=== PATIENT | female | born 1960 | race Caucasian/White ===

== ENCOUNTER 2017-05-28 13:58 | Emergency (ER) | payer OTHER ==
[~2017-05-28] VITALS: Ht 157.5 cm; Wt 61.5 kg
[~2017-05-28 13:58] MED LIST: ASPI81TA82 PO; CYMB30CA PO; DOXY100T PO; ED B10TA PO; LORTA5 PO; MOTR200T PO; SULF1TAB47 PO; TELM1TAB56 PO
[2017-05-28 14:05] VITALS: BP 116/88; PULSE 93; RESP 22; TEMP 97.8; O2SAT 98
[2017-05-28] MEDS ORDERED: SODIUM CHLOR 0.9% 1000 ML INJ 1,000 ML IV SCH ×2 (14:12→15:45)
[2017-05-28] MEDS ORDERED: ONDANSETRON HCL 4 MG/2 ML VIAL IVP ONE (14:15)
[2017-05-28] MEDS ORDERED: MORPHINE SULFATE 4 MG/ML INJ IV PUSH ONE (14:15)
[2017-05-28] MEDS ORDERED: SODIUM CHLORIDE 0.9% FLUSH 10 ML FLUSH IV FLUSH PRN (14:15)
[2017-05-28] MEDS ORDERED: HYDROmorphone HCL PF 1 MG/ML VIAL IV PUSH ONE (14:30)
[2017-05-28] MEDS ORDERED: diphenhydrAMINE HCL 50 MG/ML VIAL IV PUSH ONE (14:30)
[2017-05-28] MEDS ORDERED: PROCHLORPERAZINE INJ 10 MG/2 ML VIAL IV PUSH ONE (14:30)
[2017-05-28] MEDS ORDERED: CYMB30CA PO (14:33)
[2017-05-28] MEDS ORDERED: LISI2.5T3 PO (14:33)
[2017-05-28] MEDS ORDERED: ASPI81TA11 PO (14:33)
[2017-05-28] MEDS ORDERED: cholesterol med PO (14:33)
[2017-05-28] MEDS ORDERED: HYDR-3516 PO (14:33)
--- NOTE | 2017-05-28 14:38 | PD ---
HPI . Abdominal pain Chief Complaint: Abdominal Pain Time Seen by Provider: 14:12 Travel History International Travel<30 days: No Contact w/Intl Traveler<30days: No Traveled to known affect area: No History of Present Illness HPI This patient presents to us via [facility] with the chief complaint of acute abdominal pain. She states that she vomited at about 10 AM and then immediately had the onset of severe right-sided abdominal pain. She describes a constant, stabbing pain which she rates 10/10. Associated with nausea and vomiting. No modifying factor. No previous similar history. PFSH Past Medical History Anxiety: Yes Depression: Yes Cancer: No Diabetes: No Diminished Hearing: No Hepatitis: No Hiatal Hernia: No Hypertension: Yes Immunizations Current: Yes Thyroid Disease: No Past Surgical History Abdominal Surgery: Yes (EXP LAP LYSIS ADHESIVES) Section: Yes (X 2) Gynecologic Surgery: Yes ( X 2; HYSTERECTOMY) Hysterectomy: Yes Other Surgery: Yes (TUMOR REMOVED RIGHT SHOULDER 04/2007) Family History Family Myocardial Infarction: Yes (GRANDMOTHER) Social History Alcohol Use: Yes ("SOCIAL ONLY" ) Tobacco Use: Yes (1/2 PPD) Substance Use: No Allergies-Medications (Allergen,Severity, Reaction): Coded Allergies: cyclobenzaprine (Unverified Allergy, Severe, Nausea/Vomiting, 05/28/17) Reported Meds & Prescriptions Reported Meds & Active Scripts Active Phenergan (Promethazine HCl) 25 Mg Tablet 25 Mg PO Q6H PRN Flomax (Tamsulosin HCl) 0.4 Mg Cap 0.4 Mg PO HS Percocet (Oxycodone-Acetaminophen) 5-325 mg Tab 1 Tab PO Q4H PRN Reported Cymbalta DR (Duloxetine HCl) 30 Mg Capdr 30 Mg PO HS Hydrocodone-Acetaminophen 5-325 mg Tab 1 Tab PO BID PRN Aspirin EC (Aspirin) 81 Mg Tabdr 81 Mg PO HS [cholesterol med] 1 Tab PO HS Lisinopril 2.5 Mg Tab Unknown Dose PO HS Review of Systems Except as stated in HPI: all other systems reviewed are Neg General / Constitutional: No: Fever, Chills Gastrointestinal: Positive: Nausea, Vomiting, Abdominal Pain, No: Diarrhea Genitourinary: No: Urgency, Frequency, Dysuria Physical Exam Narrative GENERAL: This patient is writhing. SKIN: warm/dry. HEAD: Normocephalic. Atraumatic. EYES: Pupils equal and round. No scleral icterus. No injection or drainage. ENT: No nasal bleeding or discharge. Mucous membranes pink and moist. NECK: Trachea midline. Full range of motion without pain.. CARDIOVASCULAR: Regular rate and rhythm. Heart sounds normal. RESPIRATORY: No accessory muscle use. Clear to auscultation. Breath sounds equal bilaterally. GASTROINTESTINAL: Abdomen soft. Tender especially in the right upper quadrant. Bowel sounds present. Nondistended. No CVA tenderness. MUSCULOSKELETAL: No obvious deformities. NEUROLOGICAL: Awake and alert. No obvious cranial nerve deficits. Motor grossly within normal limits. Normal speech. PSYCHIATRIC: Appropriate mood and affect; insight and judgment normal. Data Data Last Documented VS Vital Signs Date Time Temp Pulse Resp B/P (MAP) Pulse Ox O2 Delivery O2 Flow Rate FiO2 05/28/17 16:42 84 16 163/87 (112) 100 Room Air 05/28/17 14:44 98.4 Orders Orders Basic Metabolic Panel (Bmp) (05/28/17 14:12) Complete Blood Count With Diff (05/28/17 14:12) Urinalysis - C+S If Indicated (05/28/17 14:12) Ct Abd/Pel W/O Iv Contrast (05/28/17 14:12) Iv Access Insert/Monitor (05/28/17 14:12) Morphine Inj (Morphine Inj) (05/28/17 14:15) Ondansetron Inj (Zofran Inj) (05/28/17 14:15) Sodium Chlor 0.9% 1000 Ml Inj (Ns 1000 M (05/28/17 14:12) Sodium Chloride 0.9% Flush (Ns Flush) (05/28/17 14:15) Prochlorperazine Inj (Compazine Inj) (05/28/17 14:30) Diphenhydramine Inj (Benadryl Inj) (05/28/17 14:30) Hydromorphone Pf Inj (Dilaudid Pf Inj) (05/28/17 14:30) Lactic Acid (05/28/17 14:43) Sodium Chlor 0.9% 1000 Ml Inj (Ns 1000 M (05/28/17 15:45) Labs Laboratory Tests Test 05/28/17 14:35 05/28/17 16:25 White Blood Count 14.7 TH/MM3 Red Blood Count 4.63 MIL/MM3 Hemoglobin 13.9 GM/DL Hematocrit 40.7 % Mean Corpuscular Volume 87.9 FL Mean Corpuscular Hemoglobin 29.9 PG Mean Corpuscular Hemoglobin Concent 34.0 % Red Cell Distribution Width 12.0 % Platelet Count 328 TH/MM3 Mean Platelet Volume 8.5 FL Neutrophils (%) (Auto) 80.9 % Lymphocytes (%) (Auto) 10.5 % Monocytes (%) (Auto) 5.5 % Eosinophils (%) (Auto) 0.1 % Basophils (%) (Auto) 3.0 % Neutrophils # (Auto) 12.0 TH/MM3 Lymphocytes # (Auto) 1.5 TH/MM3 Monocytes # (Auto) 0.8 TH/MM3 Eosinophils # (Auto) 0.0 TH/MM3 Basophils # (Auto) 0.4 TH/MM3 CBC Comment DIFF FINAL Differential Comment Blood Urea Nitrogen 18 MG/DL Creatinine 0.76 MG/DL Random Glucose 123 MG/DL Calcium Level 9.0 MG/DL Sodium Level 139 MEQ/L Potassium Level 3.4 MEQ/L Chloride Level 106 MEQ/L Carbon Dioxide Level 23.8 MEQ/L Anion Gap 9 MEQ/L Estimat Glomerular Filtration Rate 78 ML/MIN Lactic Acid Level 1.5 mmol/L Urine Color YELLOW Urine Turbidity CLEAR Urine pH 6.5 Urine Specific [place] 1.020 Urine Protein NEG mg/dL Urine Glucose (UA) NEG mg/dL Urine Ketones 40 mg/dL Urine Occult Blood LARGE Urine Nitrite NEG Urine Bilirubin NEG Urine Leukocyte Esterase NEG Urine RBC 25-49 /hpf Urine WBC 3-5 /hpf Urine Squamous Epithelial Cells 0-5 /hpf Microscopic Urinalysis Comment CULT NOT INDICATED MDM Medical Decision Making Medical Screen Exam Complete: Yes Emergency Medical Condition: Yes Medical Record Reviewed: Yes (her major medical issues include hypertension and tobacco abuse.) Differential Diagnosis Differential diagnosis of abdominal pain includes but is not limited to gastritis, pancreatitis, hepatitis, gastroenteritis, gallbladder disease, constipation, urinary retention, UTI, peptic ulcer disease, diverticulitis or appendicitis Narrative Course This patient presents with the acute onset of right-sided abdominal pain. Her pain is colicky. She is writhing on the bed. She does not have an acute abdomen. She is acting more like renal or biliary colic. CBC & BMP Diagram 05/28/17 14:35 Calcium Level 9.0 Last Impressions Abdomen/Pelvis CT 05/28/17 1412 Signed Impressions: Service Date/Time: Sunday, May 28, 2017 14:59 - CONCLUSION: 1. 9 mm distal right ureteral stone with hydronephrosis and hydroureter. The stone is at the level of the crossing of the iliac vessels. 2. Bilateral renal calculi. Mark Daugherty Jr., MD UA is negative for infection. This patient is now stable for discharge to home. She has had adequate pain control here. Diagnosis Primary Impression: Abdominal pain Qualified Codes: R10.31 - Right lower quadrant pain Additional Impressions: Vomiting Qualified Codes: R11.2 - Nausea with vomiting, unspecified Nephrolithiasis Referrals: Niranjan Mireles MD Patient Instructions: General Instructions, Kidney Stones (DC), Narcotic given in the ED Med/Other Pt SpecificInfo: Prescription(s) given Scripts Promethazine (Phenergan) 25 Mg Tablet 25 MG PO Q6H Y for NAUSEA OR VOMITING, #12 TAB 0 Refills Prov: Irais Pedroza MD 05/28/17 Tamsulosin (Flomax) 0.4 Mg Cap 0.4 MG PO HS for kidney stone passage, #30 CAP 0 Refills Prov: Irais Pedroza MD 05/28/17 Oxycodone-Acetaminophen (Percocet) 5-325 mg Tab 1 TAB PO Q4H Y for PAIN, #12 TAB 0 Refills Prov: Irais Pedroza MD 05/28/17 Disposition: 01 DISCHARGE HOME Condition: Stable Irais Pedroza MD May 28, 2017 14:38
[2017-05-28 14:44] VITALS: BP 156/89; PULSE 83; RESP 18; TEMP 98.4; O2SAT 97
[2017-05-28 15:04] LABS: BICARBONATE 23.8 MEQ/L (21.0-32.0)
[2017-05-28 15:07] LABS: CREATININE 0.76 MG/DL (0.50-1.00)
[2017-05-28 15:19] LABS: BASOPHIL # 0.4 TH/MM3 (0-0.2); EOSINOPHIL % 0.1 % (0.0-4.0); HEMATOCRIT 40.7 % (35.0-46.0); HEMOGLOBIN 13.9 GM/DL (11.6-15.3); LYMPH % 10.5 % (9.0-44.0); LYMPHOCYTE # 1.5 TH/MM3 (1.0-4.8); MEAN CELL VOLUME 87.9 FL (80.0-100.0); MEAN CORPUSCULAR HEMOGLOBIN 29.9 PG (27.0-34.0); MEAN PLATELET VOLUME 8.5 FL (7.0-11.0); MONO % 5.5 % (0.0-8.0); MONOCYTE # 0.8 TH/MM3 (0-0.9); NEUT % 80.9 % (16.0-70.0); PLATELET COUNT 328 TH/MM3 (150-450); RED BLOOD COUNT 4.63 MIL/MM3 (4.00-5.30); WHITE BLOOD COUNT 14.7 TH/MM3 (4.0-11.0)
--- NOTE | 2017-05-28 15:30 | RADRPT ---
EXAM DATE/TIME: 05/28/2017 14:59 [facility] COMPARISON: No previous studies available for comparison. INDICATIONS : Right lower abdominal pain. New onset. ORAL CONTRAST: No oral contrast ingested. RADIATION DOSE: 16.85 CTDIvol (mGy) MEDICAL HISTORY : Hypertension. SURGICAL HISTORY : Hysterectomy. section. ENCOUNTER: Initial ACUITY: 1 day PAIN SCALE: 5/10 LOCATION: Right lower quadrant TECHNIQUE: Volumetric scanning of the abdomen and pelvis was performed. Using automated exposure control and ad justment of the mA and/or kV according to patient size, radiation dose was kept as low as reasonably achievable to obtain optimal diagnostic quality images. DICOM format image data is available electro nically for review and comparison. FINDINGS: LOWER LUNGS: The visualized lower lungs are clear. LIVER: Homogeneous density without lesion. There is no dilation of the biliary tree. No calcified gallston es. SPLEEN: Normal size without lesion. Granulomatous calcifications. PANCREAS: Within normal limits. KIDNEYS: There is hydronephrosis and hydroureter on the right. This is secondary to a 9 mm stone located withi n the distal ureter at the level of the crossing of the iliac vessels. There is enlargement of the ri ght kidney with perinephric stranding. No hydronephrosis on the left. Bilateral renal calculi. The la rgest on the left measures 7 mm. ADRENAL GLANDS: Within normal limits. VASCULAR: There is no aortic aneurysm. BOWEL/MESENTERY: The stomach, small bowel, and colon demonstrate no acute abnormality. There is no free intraperitone al air or fluid. ABDOMINAL WALL: Within normal limits. RETROPERITONEUM: There is no lymphadenopathy. BLADDER: No wall thickening or mass. REPRODUCTIVE: Within normal limits. INGUINAL: There is no lymphadenopathy or hernia. MUSCULOSKELETAL: Within normal limits for patient age. CONCLUSION: 1. 9 mm distal right ureteral stone with hydronephrosis and hydroureter. The stone is at the level of the crossing of the iliac vessels. 2. Bilateral renal calculi. Mark Daugherty Jr., MD on May 28, 2017 at 15:25 Board Certified Radiologist. This report was verified electronically.
[2017-05-28 15:40] VITALS: BP 172/79; PULSE 74; RESP 18; O2SAT 98
[2017-05-28] MEDS ORDERED: PROM25TA10 PO (15:58)
[2017-05-28] MEDS ORDERED: PERC5TAB12 PO (15:58)
[2017-05-28] MEDS ORDERED: TAMS5CAP PO (15:58)
[2017-05-28 16:27] VITALS: BP 176/101; PULSE 79; RESP 16; O2SAT 96
[2017-05-28 16:35] LABS: BILIRUBIN, URINE NEG (NEG); BLOOD, URINE LARGE (NEG); GLUCOSE,URINE NEG (NEG); KETONE, URINE 40 mg/dL (NEG); NITRITE,URINE NEG (NEG); PH, URINE 6.5 (5.0-8.5); URINE LEUKOCYTE ESTERASE NEG (NEG)
[2017-05-28 16:42] VITALS: BP 163/87; PULSE 84; RESP 16; O2SAT 100
[2017-05-28 17:02] LABS: URINE COLOR YELLOW (YELLW/STRAW)
[2017-05-28 17:03] LABS: SQUAMOUS EPITHELIAL CELL URINE 0-5 /hpf (0-5)
== END 2017-05-28 17:43 | disposition home or self-care (01) ==
LOC: PHED 13:58
DX: R10.31 Right lower quadrant pain (principal); R11.2 Nausea with vomiting, unspecified; N20.0 Calculus of kidney; I10 Essential (primary) hypertension; F17.200 Nicotine dependence, unspecified, uncomplicated; Z86.59 Personal history of other mental and behavioral disorders
CPT/HCPCS: 74176; 80048; 81001; 83605; 85025; 96361; 96374; 96375; 99285; J0780; J1170; J1200; J2270; J2405; J7030

== ENCOUNTER 2018-09-18 21:31 | Inpatient (IN) ==
[2018-09-18] MEDS ORDERED: Morphine Inj 4 MG/ML Vial IV.PUSH ONE ×2 (21:56→22:58)
[2018-09-18] MEDS ORDERED: Ketorolac Inj 30 MG/ML (IVP) Vial IV.PUSH ONE (21:56)
[2018-09-18] MEDS ORDERED: Sod Chloride 0.9% Inj 1,000 ML IV.CONT SCH (22:00)
--- NOTE | 2018-09-18 22:07 | ED ---
HPI General Chief Complaint: Abdominal Pain Stated Complaint: side pain after surgery Time Seen by Provider: 09/18/18 21:46 Source: patient Mode of arrival: ambulatory Limitations: no limitations History of Present Illness HPI narrative: The patient is a 58-year-old female who presents to the emergency department via private vehicle for left flank pain. The patient states that she was recently in the hospital for left flank pain and subsequently had a stent placed. The patient was on antibiotics for 2 days and then subsequently taken off of the antibiotics. The patient was discharged home today and then went down to [facility] where she had her stent removed and lithotripsy performed by Dr. Spear. The patient states her urologist is Dr. Flores. The patient went home from the procedure at 5 PM and several hours later developed left flank pain. The pain is located left flank, migrates to the left mid back, and is associated with nausea and vomiting. The patient denies any dysuria, frequency, urgency, or hematuria. Symptoms are moderate to severe and progressive. The patient's primary physician is Dr. Stevenson. The patient denies any history of diverticulitis, has had 2 previous sections as well as surgery on the left hip for possible cancer which was benign. MD complaint: Reports flank pain Onset (ago): hour(s) Pain Consistency: constant Location: Reports L flank Severity: severe Severity scale (1-10): 10 Quality: Reports stabbing and sharp Radiation: Reports none Migration to: Reports other Relieving factors: nothing Exacerbating factors: nothing Context: Reports other Associated symptoms: Reports nausea and vomiting Related Data Patient : No Home Medications Medication Instructions Recorded Confirmed duloxetine 90 mg PO DAILY 09/11/18 09/18/18 hydrocodone-acetaminophen 1 tab TID 09/11/18 09/18/18 losartan 50 mg PO DAILY 09/11/18 09/18/18 Previous Rx's Medication Instructions Recorded phenazopyridine 100 mg PO Q8H PRN 10 Days #30 tab 09/13/18 tamsulosin 0.4 mg PO DAILY 14 Days #14 cap 09/13/18 oxycodone-acetaminophen 1 tab PO Q4-6H PRN #18 tab 09/18/18 Allergies Allergy/AdvReac Type Severity Reaction Status Date / Time cyclobenzaprine Allergy Severe Nausea/Vomi Verified 09/18/18 21:39 ting Review of Systems ROS: all other systems reviewed are negative [facility] Medical History Medical History Chronic back pain (Acute) HTN (hypertension) (Acute) History of hysterectomy (Acute) Kidney stone (Acute) Mass of soft tissue of left lower extremity (Acute) Surgical History Surgical History H/O: (Acute) Hx of lumpectomy (Acute) Social History Social History Substance History: No History of Abuse Second Hand Smoke Exposure: No Smoking Status: Current some day smoker Tobacco Type: Cigarettes How Often Do You Have a Drink Containing Alcohol: 2 to 4 times a month Recent Travel in [facility] within the Last 8 Weeks: No Immunization History Tetanus Immunization: Unsure Exam Narrative Exam Narrative: GENERAL: Awake, alert, pleasant 58-year-old female who appears her stated age and is in no acute respiratory distress. Patient does appear in moderate discomfort. SKIN: Focused skin assessment warm/dry. HEAD: Atraumatic. Normocephalic. EYES: No scleral icterus. ENT: No nasal bleeding or discharge. Mucous membranes pink and moist. NECK: Trachea midline. No JVD. CARDIOVASCULAR: Regular rate and rhythm. No murmur appreciated. RESPIRATORY: No accessory muscle use. Clear to auscultation. Breath sounds equal bilaterally. GASTROINTESTINAL: Abdomen soft, non-tender, nondistended. Well-healed midline lower abdominal scar. Back: No left CVA tenderness. A few scattered maculopapular areas on the left low back which patient states has been chronic. MUSCULOSKELETAL: No obvious deformities. No clubbing. No cyanosis. No edema. NEUROLOGICAL: Awake and alert. No obvious cranial nerve deficits. Motor grossly within normal limits. Normal speech. PSYCHIATRIC: Appropriate mood and affect; insight and judgment normal. Course Initial Documented Vital Signs Temperature 97.6 F 09/18/18 21:39 Pulse Rate 95 H 09/18/18 21:39 Respiratory Rate 20 09/18/18 21:39 Blood Pressure 143/82 H 09/18/18 21:39 Pulse Oximetry 97 09/18/18 21:39 Last Documented Vital Signs Temperature 97.6 F 09/18/18 21:39 Pulse Rate 95 H 09/18/18 21:39 Respiratory Rate 20 09/18/18 21:39 Blood Pressure 143/82 H 09/18/18 21:39 Pulse Oximetry 97 09/18/18 21:39 Medical Decision Making MDM Narrative Medical decision making narrative: IV was established, labs are drawn and sent, and the patient was placed on cardiac telemetry monitoring and continuous pulse oximetry monitoring. The patient was administered Toradol, morphine, Zofran, and IV fluids. Noncontrast CT of the abdomen and pelvis was obtained to evaluate for hydronephrosis and possible obstruction with current ureterolithiasis. The patient's white count and hemoglobin are within normal limits. CT of the abdomen and pelvis reveals a left-sided perinephric hematoma , I discussed the patient with Dr. Flores at 10:53 PM who recommends pain control and IV hydration. Type and screen was sent to lab. I discussed the patient with the on-call [facility] physician, Dr. Montgomery, who agrees with admission to Dr. Koroma. The patient was reassessed at 10:57 PM, she continued to have significant left flank pain despite Toradol and morphine. Therefore, the patient was administered a second dose of morphine 4 mg intravenously. Medical Screen Exam Complete: Yes Emergency Medical Condition: Yes Differential Diagnosis Differential Diagnosis: Differential diagnosis includes postoperative complication, nephrolithiasis, hydronephrosis, pyelonephritis, diverticulitis, lower lobe pneumonia. Lab Data Result diagrams: 09/18/18 22:10 09/18/18 22:10 Lab Results 09/18/18 09/18/18 Range/Units 22:10 22:10 WBC 8.2 (4.0-11.0) th/mm3 RBC 4.10 (4.00-5.30) mil/mm3 Hgb 12.5 (11.6-15.3) gm/dL Hct 35.7 (35.0-46.0) % MCV 87.0 (80.0-100.0) fL MCH 30.5 (27.0-34.0) pg MCHC 35.1 (32.0-36.0) % RDW 12.4 (11.6-17.2) % Plt Count 327 (150-450) th/mm3 MPV 8.1 (7.0-11.0) fL Neut % (Auto) 91.1 H (16.0-70.0) % Lymph % (Auto) 7.9 L (9.0-44.0) % Noble % (Auto) 0.8 (0.0-8.0) % Eos % (Auto) 0.0 (0.0-4.0) % Baso % (Auto) 0.2 (0.0-2.0) % Neut # (Auto) 7.5 (1.8-7.7) th/mm3 Lymph # (Auto) 0.6 L (1.0-4.8) th/mm3 Noble # (Auto) 0.1 (0.0-0.9) th/mm3 Eos # (Auto) 0.0 (0.0-0.4) th/mm3 Baso # (Auto) 0.0 (0.0-0.2) th/mm3 WBC Differential . Differential Comment Auto diff final Lactic Acid 1.6 (0.4-2.0) mmol/L Imaging Data Radiologist's impression: Abdomen/Pelvis CT 09/18/18 21:56 CONCLUSION: 1. Interval development of a subcapsular and perinephric retroperitoneal hemorrhage on the left. 2. Interval removal of the left double-J stent without hydronephrosis. Multiple stone fragments are seen involving the left kidney. 3. Colonic diverticulosis. Discharge Plan Discharge Disposition Patient Disposition: ED Admit(ED Internal Use Only) Discharge Condition Condition: Stable Discharge Details Diagnosis: Perinephric hematoma, Left flank pain Physicians Team ED Provider: Ihsan Mccabe Primary Care Provider: UNKNOWN, Rxs /Orders / Referrals /Forms Prescriptions: No Action losartan 50 mg Tablet 50 mg PO DAILY RF: 0 duloxetine 30 mg Capsule,Delayed Release(Dr/Ec) 90 mg PO DAILY RF: 0 hydrocodone-acetaminophen 7.5-325 mg Tablet 1 tab TID RF: 0 tamsulosin 0.4 mg Capsule 0.4 mg PO DAILY 14 Days Qty: 14 RF: 0 phenazopyridine 100 mg Tablet 100 mg PO Q8H PRN (Reason: Dysuria) 10 Days Qty: 30 RF: 0 oxycodone-acetaminophen 5-325 mg Tablet 1 tab PO Q4-6H PRN (Reason: Pain) Qty: 18 RF: 0 Status ED Status: Pending Admission
[2018-09-18 22:43] LABS: Baso % (Auto) 0.2 % (0.0-2.0); Hematocrit 35.7 % (35.0-46.0); Hemoglobin 12.5 gm/dL (11.6-15.3); Lymph # (Auto) 0.6 th/mm3 (1.0-4.8); Lymph % (Auto) 7.9 % (9.0-44.0); Mean Corpuscular HGB Conc 35.1 % (32.0-36.0); Mean Corpuscular Hemoglobin 30.5 pg (27.0-34.0); Mean Platelet Volume 8.1 fL (7.0-11.0); Mono # (Auto) 0.1 th/mm3 (0.0-0.9); Mono % (Auto) 0.8 % (0.0-8.0); Neut # (Auto) 7.5 th/mm3 (1.8-7.7); Neut % (Auto) 91.1 % (16.0-70.0); Platelet Count 327 th/mm3 (150-450); Red Cell Distribution Width 12.4 % (11.6-17.2); White Blood Count 8.2 th/mm3 (4.0-11.0)
--- NOTE | 2018-09-18 22:43 | CT ---
EXAM DATE: 09/18/2018 10:38 PM EST AGE/SEX: 58 years / Female INDICATIONS: Left flank pain. Left lithotripsy and stent removal today. CLINICAL DATA: This is the patient's initial encounter. Patient reports that signs and symptoms have been present for 1 day and indicates a pain score of 8/10. MEDICAL/SURGICAL HISTORY: Hypertension. Renal calculi. Hysterectomy. section. RADIATION DOSE: 9.7 CTDI (mGy) COMPARISON: [facility] [place], CT ABDOMEN & PELVIS W/O CONTRAST, 09/16/2018. . TECHNIQUE: Multiple contiguous axial images were obtained through the abdomen. Images were obtained using multiple row detector helical technique. Using automated exposure control and adjustment of the mA and/or kV according to patient size, radiation dose was kept as low as reasonably achievable to o btain optimal diagnostic quality images. DICOM format image data is available electronically for rev iew and comparison. FINDINGS: Lower Lungs: The visualized lower lungs are clear. Liver: The liver has a homogeneous density without space-occupying lesion. There is no dilation of th e biliary tree. Gallbladder is unremarkable. Spleen: Homogeneous density without enlargement. Pancreas: Unremarkable without mass or calcification. Kidneys: An acute subcapsular hematoma is seen involving the left kidney along its posterior surface . It measures 8.5 x 6.6 x 4.3 cm in generates mass effect upon the posterior margin of the left kidne y. It also displaces the left kidney anteriorly. There is small volume hemorrhage within the perineph leonidas fat within the left retroperitoneum tracking down into the superior portion the left hemipelvis. This is a new finding from the prior exam. The right kidneys unremarkable the double-J stent is been removed. Multiple small stone fragments are seen involving the collecting system of left kidney. No h ydronephrosis. A 2 mm stone is seen involving the right kidney... Adrenal Glands: Unremarkable. Aorta: Diffuse calcified atheromatous plaque without aneurysmal dilation. Bowel/Mesentery: A few scattered colonic diverticuli without acute inflammation. The bowel loops are grossly unremarkable. The cecum and sigmoid colon have a normal configuration. Abdominal Wall: Intact. Retroperitoneum: No evidence of adenopathy in the retrocrural, para-aortic, or deep pelvic regions. Bladder: Contours are smooth. Reproductive Organs: No abnormal masses or calcifications seen. Inguinal: The inguinal region is unremarkable without evidence of adenopathy. Bony Structures: Unremarkable. CONCLUSION: 1. Interval development of a subcapsular and perinephric retroperitoneal hemorrhage on the left. 2. Interval removal of the left double-J stent without hydronephrosis. Multiple stone fragments are seen involving the left kidney. 3. Colonic diverticulosis. Electronically signed by: Mark Daugherty MD Board Certified Radiologist 09/18/2018 10:42 PM EST
[2018-09-18] MEDS ORDERED: Bisacodyl 10 MG Supp RECTAL PRN (22:50)
[2018-09-18] MEDS ORDERED: Morphine Inj 4 MG/ML Vial IV.PUSH PRN (22:50)
[2018-09-18] MEDS ORDERED: Naloxone Inj 0.4 MG/ML Vial IV.PUSH PRN (22:50)
[2018-09-18] MEDS ORDERED: Acetaminophen 325 MG Tablet PO PRN ×2 (22:50)
[2018-09-18 23:03] LABS: Alanine Aminotransferase 16 U/L (10-53)
[2018-09-18 23:05] LABS: Alkaline Phosphatase 70 U/L (45-117); Total Protein 6.8 g/dL (6.4-8.2)
[2018-09-18 23:05] LABS: Bilirubin,Urine Negative (Negative); Clarity,Urine Cloudy (Clear); Color,Urine Red (Yellw/Straw); Glucose,Urine (UA) 50 mg/dL (Negative); Leukocyte Esterase,Urine Trace (Negative); Mucus,Urine Many /lpf (Occasional); Nitrite,Urine Negative (Negative); Specific Gravity,Urine 1.023 (1.002-1.035); Squamous Epithelial Cell,Urine 2 /hpf (0-5)
[2018-09-18 23:11] LABS: Albumin 3.8 g/dL (3.4-5.0); Anion Gap 11 meq/L (5-15); Aspartate Aminotransferase 19 U/L (15-37); Blood Urea Nitrogen 14 mg/dL (7-18); Chloride 104 meq/L (98-107); Glomerular Filtration Rate 79 mL/min (>89); Glucose,Random 173 mg/dL (74-106); Lipase 81 U/L (73-393); Magnesium 1.9 mg/dL (1.5-2.5); Potassium 3.9 meq/L (3.5-5.1); Sodium 137 meq/L (136-145)
[2018-09-19] MEDS: Sod Chloride 0.9% Inj 1,000 ML IV.CONT SCH ×3 (00:02→20:21)
[2018-09-19] MEDS: HYDROmorphone PF Inj 1 MG/ML Ampul IV.PUSH PRN ×5 (02:53→21:42)
[2018-09-19 05:09] LABS: Baso % (Auto) 0.3 % (0.0-2.0); Hematocrit 31.3 % (35.0-46.0); Hemoglobin 10.8 gm/dL (11.6-15.3); Lymph # (Auto) 1.1 th/mm3 (1.0-4.8); Lymph % (Auto) 11.6 % (9.0-44.0); Mean Corpuscular HGB Conc 34.5 % (32.0-36.0); Mean Corpuscular Hemoglobin 30.7 pg (27.0-34.0); Mono # (Auto) 0.3 th/mm3 (0.0-0.9); Mono % (Auto) 3.5 % (0.0-8.0); Neut # (Auto) 7.8 th/mm3 (1.8-7.7); Neut % (Auto) 84.6 % (16.0-70.0); Platelet Count 297 th/mm3 (150-450); Red Blood Count 3.52 mil/mm3 (4.00-5.30); Red Cell Distribution Width 12.6 % (11.6-17.2); White Blood Count 9.3 th/mm3 (4.0-11.0)
[2018-09-19 05:21] LABS: Calcium 7.9 mg/dL (8.5-10.1); Carbon Dioxide 24.2 meq/L (21.0-32.0); Potassium 4.1 meq/L (3.5-5.1)
[2018-09-19] MEDS: Senna/Docusate Sodium 8.6/50 MG Tablet PO SCH ×2 (08:21→20:23)
--- NOTE | 2018-09-19 12:35 | MB ---
cc: Robby Flores DO DATE: 09/19/2018 HISTORY OF PRESENT ILLNESS: Ms. Nolasco is a pleasant 58-year-old female with a history of left renal calculi. She underwent cystoscopy with left double-J stent insertion 1 week ago at [facility] and today she presents to the emergency room, status post left extracorporeal shock wave lithotripsy with left-sided flank pain. CT scan in the emergency room demonstrated a perinephric hematoma with some small stone fragments within the left lower pole and a few small fragments within the proximal left ureter. Her stent was removed by Dr. Galloway earlier in the day. She denies any fever or chills, but has nausea and vomiting and her pain is uncontrolled at home with p.o. pain medication. She was advised to come to the emergency room to help control her pain and to be evaluated. PAST MEDICAL HISTORY: Includes chronic back pain, hypertension, kidney stones. PAST SURGICAL HISTORY: Recent left extracorporeal shockwave lithotripsy, history of a , history of a lumpectomy. SOCIAL HISTORY: Notable for smoking and drinking in the past. She denies any drug abuse. REVIEW OF SYSTEMS: Left-sided flank pains noted nausea and vomiting, left-sided abdominal pain. Notes nausea and vomiting also. Denies chest pain or shortness of breath. Denies headache, visual disturbances, gait disturbances. Denies bleeding disorders. Remaining review of systems were reviewed and were negative. PHYSICAL EXAMINATION: VITAL SIGNS: Temperature 97.9, heart rate 85, respiratory rate 20, 120/66 blood pressure, 94% on room air. GENERAL: She is a well-developed, well-nourished 58-year-old female, in no acute distress. HEENT: Normocephalic, atraumatic. Pupils equal, round, reactive to light. Extraocular movements intact. NECK: Supple. HEART: Regular rate and rhythm. LUNGS: Clear. ABDOMEN: Soft. Left-sided tenderness noted. Left CVA tenderness noted on exam. PELVIC: Normal female external genitalia is noted. EXTREMITIES: Show no signs of cyanosis, clubbing or edema. NEUROLOGIC: Cranial nerves 2 through 12 are intact. LABORATORY DATA: White count 9.3, hemoglobin 10.8, hematocrit 31.3, platelet count of 297. Sodium 140, potassium 4.1, chloride 106, CO2 24.2, BUN 12, creatinine 0.71, glucose of 126. Urinalysis shows numerous red cells and 32 white cells. Urine culture is currently pending. Again, CT scan shows small stone fragments in the left lower pole without hydronephrosis, but noted to have a left perinephric hematoma, status post extracorporeal shockwave lithotripsy. ASSESSMENT: A 58-year-old female status post left extracorporeal shockwave lithotripsy with evidence of a perinephric hematoma and some small renal calculi without evidence of obstruction or hydronephrosis at this time. Recommend conservative measures including IV fluids and IV antibiotics. Check urine culture results and pain medication, antiemetics as necessary. Thank you for the consult and allowing me to participate in the care for this patient. DO MOUNA Bhakta/ct , 11:39 AM , 11:48 AM
--- NOTE | 2018-09-19 13:08 | P.HPIM ---
History of Present Illness Primary Care Physician: Dr. Stevenson Chief Complaint: left flank pain History of Present Illness: Ms. Nolasco is a 58 y/o female who was recently admitted to [facility] [place] 09/11/18 - 09/13/18 with left-sided abdominal/flank pain and was found to have 2 obstructing stones in the left kidney with the largest at the UPJ with a smaller 1 mm stone at the UPJ. There was a nonobstructing 1 mm stone in the right kidney. She had a cystoscopy and left retrograde pyelogram with left double-J stent insertion by Dr. Flores on 09/11/18. She still had some pain after the stent placement and because of this Dr. Flores ordered a repeat CT scan of the abdomen on 09/13/18 and it was reported that the stent was in the appropriate place. Pt was started on Flomax 0.4mg daily and Pyridium on the day of discharge. Pt has been using her Lortab 7.5/325mg for pain. Pt had urine culture did not grow out any bacteria so an antibiotic was not ordered at previous discharge. She presented back to the ED at [facility] [place] on with worsening left flank pain. Pt has been afebrile. Repeat CT Abd/pelvis on 09/16/18 which noted the Double-J catheter present on the left side with proximal loop in the renal pelvis and distal loop within the urinary bladder, interval calcified stones in the lower pole the left kidney stable from prior measuring up to 6 mm. On the right side, solitary 3 mm stone lower pole right kidney without evidence of hydronephrosis. Pt has had a difficult time with pain control and has required IV Dilaudid. Her labs are stable and pt has been afebrile. Patient was DC'd to [facility] [place] 09/18/18 to have Extracorporeal shockwave lithotripsy left renal calculi, cystoscopy and left ureteral stent removal with . The patient went home from the procedure at 5 PM and several hours later developed left flank pain. The pain is located left flank, migrates to the left mid back, and is associated with nausea and vomiting. The patient denies any dysuria, frequency, urgency, or hematuria. Symptoms are moderate to severe and progressive. Past Medical Hx: Hypertension Cervical degenerative disc disease for which she sees pain management is on chronic pain medication. 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4 Acetaminophen (Tylenol) 650 mg PO Q6HR PRN PRN Reason: PAIN SCALE 1 TO 2 Hydrocodone Bitart/Acetaminophen ([place] 7.5/325) 1 tab PO Q4H PRN PRN Reason: PAIN SCALE 6 TO 10 Last Admin: 09/19/18 09:46 Dose: 1 tab Al Hydroxide/Mg Hydroxide (Milk Of Magnesia Liq) 30 ml PO Q12H PRN PRN Reason: Mild Constipation Bisacodyl (Dulcolax Supp) 10 mg RECTAL DAILY PRN PRN Reason: SEVERE CONSITIPATION Hydromorphone HCl (Dilaudid Pf Inj) 1 mg IV.PUSH Q3H PRN PRN Reason: FOR BREAKTHROUGH PAIN Last Admin: 09/19/18 12:21 Dose: 1 mg Sodium Chloride (Ns Inj) 1,000 mls @ 100 mls/hr IV.CONT .Q10H ANTONIO Last Admin: 09/19/18 09:47 Dose: 100 mls/hr Lactulose (Lactulose Liq) 30 ml PO DAILY PRN PRN Reason: SEVERE CONSITIPATION Naloxone HCl (Narcan Inj) 0.4 mg IV.PUSH UNSCH PRN PRN Reason: SEE LABEL COMMENTS Ondansetron HCl (Zofran Inj) 4 mg IV.PUSH Q6H PRN PRN Reason: NAUSEA OR VOMITING Last Admin: 09/19/18 05:51 Dose: 4 mg Oxycodone/Acetaminophen (Percocet 5/325 Mg) 1 tab PO Q6H PRN PRN Reason: PAIN SCALE 3 TO 5 Senna/Docusate Sodium (Maria R-Colace) 1 tab PO BID [facility] Last Admin: 09/19/18 08:21 Dose: 1 tab Sennosides (Senokot) 17.2 mg PO Q12H PRN PRN Reason: Moderate Constipation Sodium Chloride (Ns Flush) 2 ml IV.FLUSH PRN PRN PRN Reason: FLUSH AFTER USING IV ACCESS Sodium Chloride (Ns Flush) 2 ml IV.FLUSH BID [facility] Last Admin: 09/19/18 08:22 Dose: 2 ml Sodium Chloride (Ns Flush) 2 ml IV.FLUSH PRN PRN PRN Reason: FLUSH AFTER USING IV ACCESS Physical Exam Vital signs: Last Vital Signs Temp 97.9 F 09/19/18 12:00 Pulse 85 09/19/18 12:00 Resp 18 09/19/18 12:51 BP 102/56 L 09/19/18 12:00 Pulse Ox 95 09/19/18 12:00 Narrative: GENERAL: This is a well-nourished, well-developed patient, in no apparent distress. CARDIOVASCULAR: Regular rate and rhythm RESPIRATORY: Clear to auscultation. Breath sounds equal bilaterally. GASTROINTESTINAL: Abdomen soft, mild diffuse tender, nondistended. hypoactive bowel sounds MUSCULOSKELETAL: Extremities without clubbing, cyanosis, or edema. NEURO: Alert & Oriented x4 to person, place, time, situation. Moves all ext x4 Results Labs CBC & Chem 7: 09/19/18 04:21 09/19/18 04:21 Caprini VTE Risk Assessment Caprini VTE Risk Assessment: No/Low Risk (score <= 1) Caprini Risk Assessment Model: Point Value = 1 Point Value = 2 Point Value = 3 Point Value = 5 Age 41-60 Minor surgery BMI > 25 kg/m2 Swollen legs Varicose veins or History of unexplained or recurrent spontaneous Oral contraceptives or hormone replacement Sepsis (< 1 month) Serious lung disease, including pneumonia (< 1 month) Abnormal pulmonary function Acute myocardial infarction Congestive heart failure (< 1 month) History of inflammatory bowel disease Medical patient at bed rest Age 61-74 Arthroscopic surgery Major open surgery (> 45 min) Laparoscopic surgery (> 45 min) Malignancy Confined to bed (> 72 hours) Immobilizing plaster cast Central venous access Age >= 75 History of VTE Family history of VTE Factor V Leiden Prothrombin [id number] Lupus anticoagulant Anticardiolipin antibodies Elevated serum homocysteine Heparin-induced thrombocytopenia Other congenital or acquired thrombophilia Stroke (< 1 month) Elective arthroplasty Hip, pelvis, or leg fracture Acute spinal cord injury (< 1 month) Prophylaxis Regimen: Total Risk Factor Score Risk Level Prophylaxis Regimen 0-1 Low Early ambulation 2 Moderate Order ONE of the following: *Sequential Compression Device (SCD) *Heparin 5000 units SQ BID 3-4 Higher Order ONE of the following medications: *Heparin 5000 units SQ TID *Enoxaparin/Lovenox 40 mg SQ daily (WT < 150 kg, CrCl > 30 mL/min) *Enoxaparin/Lovenox 30 mg SQ daily (WT < 150 kg, CrCl > 10-29 mL/min) *Enoxaparin/Lovenox 30 mg SQ BID (WT < 150 kg, CrCl > 30 mL/min) AND/OR *Sequential Compression Device (SCD) 5 or more Highest Order ONE of the following medications: *Heparin 5000 units SQ TID (Preferred with Epidurals) *Enoxaparin/Lovenox 40 mg SQ daily (WT < 150 kg, CrCl > 30 mL/min) *Enoxaparin/Lovenox 30 mg SQ daily (WT < 150 kg, CrCl > 10-29 mL/min) *Enoxaparin/Lovenox 30 mg SQ BID (WT < 150 kg, CrCl > 30 mL/min) AND *Sequential Compression Device (SCD) Assessment and Plan Plan Ms. Nolasco is a 58 y/o female who was recently admitted to [facility] [place]11[place]18 - with left-sided abdominal/flank pain and was found to have 2 obstructing stones in the left kidney with the largest at the UPJ with a smaller 1 mm stone at the UPJ. There was a nonobstructing 1 mm stone in the right kidney. She had a cystoscopy and left retrograde pyelogram with left double-J stent insertion by Dr. Flores on 09/11/18. She still had some pain after the stent placement and because of this Dr. Flores ordered a repeat CT scan of the abdomen on 09/13/18 and it was reported that the stent was in the appropriate place. Pt was started on Flomax 0.4mg daily and Pyridium on the day of discharge. Pt has been using her Lortab 7.5/325mg for pain. Pt had urine culture did not grow out any bacteria so an antibiotic was not ordered at previous discharge. She presented back to the ED at [facility] [place] on 09/16/18 with worsening left flank pain. Pt has been afebrile. Repeat CT Abd/pelvis on 09/16/18 which noted the Double-J catheter present on the left side with proximal loop in the renal pelvis and distal loop within the urinary bladder, interval calcified stones in the lower pole the left kidney stable from prior measuring up to 6 mm. On the right side, solitary 3 mm stone lower pole right kidney without evidence of hydronephrosis. Pt has had a difficult time with pain control and has required IV Dilaudid. Her labs are stable and pt has been afebrile. Patient was DC'd to [facility] [place] PO 09/18/18 to have Extracorporeal shockwave lithotripsy left renal calculi, cystoscopy and left ureteral stent removal with Dr. Spear. The patient went home from the procedure at 5 PM and several hours later developed left flank pain. The pain is located left flank, migrates to the left mid back, and is associated with nausea and vomiting. The patient denies any dysuria, frequency, urgency, or hematuria. Symptoms are moderate to severe and progressive. Left flank pain Perinephric hematoma Continue home tamsulosin and home Pyridium IV fluids Patient given IV Rocephin in emergency department, continue Rocephin for now urine culture pending Consult to urology, appreciate assistance Concern for early ileus DC diet clear liquid diet KUB in AM decrease narcotics Hypertension Continue patient's home losartan 50 mg daily Cervical degenerative disc disease for which she sees pain management is on chronic pain medication. DVT prophylaxis with SCDs H&P: Quality VTE Deep Vein Thrombosis/Pulmonary Embolism Present on Admission: No
[2018-09-20] MEDS: HYDROmorphone PF Inj 1 MG/ML Ampul IV.PUSH PRN (03:53)
[2018-09-20] MEDS: Sod Chloride 0.9% Inj 1,000 ML IV.CONT SCH ×3 (06:24→16:00)
[2018-09-20] MEDS: Senna/Docusate Sodium 8.6/50 MG Tablet PO SCH ×2 (08:23→20:07)
--- NOTE | 2018-09-20 09:03 | P.PNURO ---
Subjective Patient symptoms today: Pt seen and examined. Developed rash last night-appears allergic rash. Benadryl ordered. Left flank pain still present but improved. N/V resolved. Objective Vital Signs: Vital Signs 09/19/18 10:16 09/19/18 12:00 09/19/18 12:51 Temperature 97.9 F Pulse Rate 85 Respiratory Rate 18 20 18 Blood Pressure 102/56 L Pulse Oximetry 95 09/19/18 14:42 09/19/18 16:00 09/19/18 16:15 Temperature 98.4 F Pulse Rate 86 Respiratory Rate 16 22 18 Blood Pressure 137/79 Pulse Oximetry 94 L 09/19/18 19:05 09/19/18 21:44 09/19/18 22:33 Temperature 97.9 F Pulse Rate 8 L Respiratory Rate 18 18 17 Blood Pressure 116/63 Pulse Oximetry 94 L 09/20/18 00:15 09/20/18 03:04 09/20/18 03:45 Temperature 97.7 F 98.4 F Pulse Rate 81 91 H Respiratory Rate 18 17 17 Blood Pressure 117/65 120/74 Pulse Oximetry 93 L 92 L 09/20/18 04:23 Temperature Pulse Rate Respiratory Rate 18 Blood Pressure Pulse Oximetry Intake & Output 09/19/18 09/20/18 09/20/18 18:59 06:59 18:59 Intake Total 1720 / 1720 2580 / 2580 Balance 1720 / 1720 2580 / 2580 Weight 68.7 kg Intake: IV 1000 / 1000 2100 / 2100 NS Inj 1,000 ML @ 100 mls/hr IV 1000 / 1000 1999 / 1999 .CONT .Q10H ANTONIO Rx#:[id number] Rocephin Inj 1,000 MG In NS Inj 100 / 100 100 ML @ 200 mls/hr IV.SIG Q24H ANTONIO Rx#:[id number] Oral 720 / 720 480 / 480 Other: # Voids 4 2 Date of Last Bowel Movement 09/19/18 09/20/18 # Bowel Movements 1 1 Result Diagrams: 09/19/18 04:21 09/19/18 04:21 Medications and IVs: Active Medications Generic Name Dose Route Start Last Admin Trade Name Freq PRN Reason Stop Dose Admin Acetaminophen 650 mg 09/18/18 22:50 Tylenol PO Q4H PRN Temp > 100.4 Acetaminophen 650 mg 09/18/18 22:50 Tylenol PO Q6HR PRN PAIN SCALE 1 TO 2 Hydrocodone Bitart/Acetaminophen 1 tab 09/19/18 16:52 09/20/18 08:24 [place] 7.5/325 PO 1 tab Q6H PRN Administration PAIN SCALE 6 TO 10 Al Hydroxide/Mg Hydroxide 30 ml 09/18/18 22:50 09/19/18 14:12 Milk Of Magnesia Liq PO 30 ml Q12H PRN Administration Mild Constipation Bisacodyl 10 mg 09/18/18 22:50 09/19/18 15:46 Dulcolax Supp RECTAL 10 mg DAILY PRN Administration SEVERE CONSITIPATION Duloxetine HCl 90 mg 09/20/18 09:00 09/20/18 08:23 Cymbalta PO 90 mg DAILY ANTONIO Administration Hydromorphone HCl 1 mg 09/19/18 16:52 09/20/18 03:53 Dilaudid Pf Inj IV.PUSH 1 mg Q6H PRN Administration FOR BREAKTHROUGH PAIN Sodium Chloride 1,000 mls @ 100 mls/hr 09/18/18 23:00 09/20/18 06:24 Ns Inj IV.CONT 100 mls/hr .Q10H ANTONIO Administration Ceftriaxone Sodium 1,000 mg/ 100 mls @ 200 mls/hr 09/19/18 23:00 09/19/18 23: 10 Sodium Chloride IV.SIG Infused Q24H ANTONIO Infusion Lactulose 30 ml 09/18/18 22:50 09/19/18 14:12 Lactulose Liq PO 30 ml DAILY PRN Administration SEVERE CONSITIPATION Losartan Potassium 50 mg 09/20/18 09:00 09/20/18 08:23 Cozaar PO 50 mg DAILY ANTONIO Administration Naloxone HCl 0.4 mg 09/18/18 22:50 Narcan Inj IV.PUSH UNSCH PRN SEE LABEL COMMENTS Ondansetron HCl 4 mg 09/18/18 22:50 09/19/18 20:22 Zofran Inj IV.PUSH 4 mg Q6H PRN Administration NAUSEA OR VOMITING Oxycodone/Acetaminophen 1 tab 09/18/18 22:50 Percocet 5/325 Mg PO Q6H PRN PAIN SCALE 3 TO 5 Phenazopyridine HCl 100 mg 09/19/18 14:00 Pyridium PO Q8H PRN Dysuria Senna/Docusate Sodium 1 tab 09/19/18 09:00 09/20/18 08:23 Maria R-Colace PO 1 tab BID ANTONIO Administration Sennosides 17.2 mg 09/18/18 22:50 Senokot PO Q12H PRN Moderate Constipation Sodium Chloride 2 ml 09/18/18 21:56 Ns Flush IV.FLUSH PRN PRN FLUSH AFTER USING IV ACCESS Sodium Chloride 2 ml 09/19/18 09:00 09/20/18 08:24 Ns Flush IV.FLUSH Not Given BID ANTONIO Sodium Chloride 2 ml 09/18/18 22:50 Ns Flush IV.FLUSH PRN PRN FLUSH AFTER USING IV ACCESS Tamsulosin HCl 0.4 mg 09/20/18 09:00 09/20/18 08:23 Flomax PO 0.4 mg DAILY ANTONIO Administration Objective Remarks: Rash on torso/back Left CVAT present Assessment and Plan - Plan 58 y.o female with left perinephric hematoma s/p left ESWL; now with allergic rash Benadryl ordered PT going to x-ray now.
--- NOTE | 2018-09-20 09:27 | XR ---
EXAM DATE: 09/20/2018 9:16 AM EST AGE/SEX: 58 years / Female INDICATIONS: Diffuse abdominal pain. Evaluate ileus. CLINICAL DATA: This is the patient's subsequent encounter. Patient reports that signs and symptoms h ave been present for 4 - 6 days and indicates a pain score of 6/10. MEDICAL/SURGICAL HISTORY: Hypertension. Renal calculi. section. Hysterectomy. COMPARISON: [facility], ABDOMEN 1V KUB, 09/18/2018. . FINDINGS: No dilated loops of small or large bowel. Visualized lower lungs are clear. No calcifications projec meme over either kidney. Interval removal of left double-J stent. Osseous structures are intact. CONCLUSION: No dilated loops of bowel seen. Electronically signed by: Mark Goetz MD Board Certified Radiologist 09/20/2018 9:25 AM EST
--- NOTE | 2018-09-20 10:19 | P.PNIM ---
Subjective Interval history: Patient continues to have left flank pain no longer having N/V multiple BMs after laxatives now with itchy rash bilateral legs and back Physical Exam Vital signs: Last Vital Signs Temp 98.0 F 09/20/18 08:00 Pulse 84 09/20/18 08:00 Resp 20 09/20/18 08:00 BP 144/75 H 09/20/18 08:00 Pulse Ox 92 L 09/20/18 08:00 Narrative: GENERAL: This is a well-nourished, well-developed patient, in no apparent distress. SKIN: papular rash bilateral flanks and bilateral upper legs CARDIOVASCULAR: Regular rate and rhythm RESPIRATORY: Clear to auscultation. Breath sounds equal bilaterally. GASTROINTESTINAL: Abdomen soft, mild diffuse tender, nondistended. hypoactive bowel sounds MUSCULOSKELETAL: Extremities without clubbing, cyanosis, or edema. NEURO: Alert & Oriented x4 to person, place, time, situation. Moves all ext x4 Results Labs CBC & Chem 7: 09/19/18 04:21 09/19/18 04:21 Assessment and Plan Plan Ms. Nolasco is a 58 y/o female who was recently admitted to [facility] [place] 09/11/18 - with left-sided abdominal/flank pain and was found to have 2 obstructing stones in the left kidney with the largest at the UPJ with a smaller 1 mm stone at the UPJ. There was a nonobstructing 1 mm stone in the right kidney. She had a cystoscopy and left retrograde pyelogram with left double-J stent insertion by Dr. Flores on 09/11/18. She still had some pain after the stent placement and because of this Dr. Flores ordered a repeat CT scan of the abdomen on 09/13/18 and it was reported that the stent was in the appropriate place. Pt was started on Flomax 0.4mg daily and Pyridium on the day of discharge. Pt has been using her Lortab 7.5/325mg for pain. Pt had urine culture did not grow out any bacteria so an antibiotic was not ordered at previous discharge. She presented back [place] [facility] [place] with worsening left flank pain. Pt has been afebrile. Repeat CT Abd/pelvis on 09/16/18 which noted the Double-J catheter present on the left side with proximal loop in the renal pelvis and distal loop within the urinary bladder, interval calcified stones in the lower pole the left kidney stable from prior measuring up to 6 mm. On the right side, solitary 3 mm stone lower pole right kidney without evidence of hydronephrosis. Pt has had a difficult time with pain control and has required IV Dilaudid. Her labs are stable and pt has been afebrile. Patient was DC'd [place] [facility]18/18 to have Extracorporeal shockwave lithotripsy left renal calculi, cystoscopy and left ureteral stent removal with Dr. Spear. The patient went home from the procedure at 5 PM and several hours later developed left flank pain. The pain is located left flank, migrates to the left mid back, and is associated with nausea and vomiting. The patient denies any dysuria, frequency, urgency, or hematuria. Symptoms are moderate to severe and progressive. Left flank pain Perinephric hematoma Continue home tamsulosin and home Pyridium IV fluids Patient given IV Rocephin in emergency department DC Rocephin urine culture pending Consult to urology, appreciate assistance Case discussed with Dr. David luna to [place] once pain controlled Drug eruption rash papular rash bilateral flanks and upper thighs consistent with drug reactions DC Dilaudid Benadryl now Percocet and IV Ofirmev for pain Concern for early ileus - resolved DC diet clear liquid diet KUB 09/20/18 No dilated loops of bowel seen. patient had multiple stools through the night resume diet Hypertension Continue patient's home losartan 50 mg daily Cervical degenerative disc disease for which she sees pain management is on chronic pain medication. DVT prophylaxis with SCDs Progress Note: Quality VTE Deep Vein Thrombosis/Pulmonary Embolism Present on Admission: No
[2018-09-20] MEDS ORDERED: oxyCODONE/Acetaminophen 10/325 Tablet PO PRN (10:41)
[2018-09-21] MEDS: Sod Chloride 0.9% Inj 1,000 ML IV.CONT SCH (06:26)
[2018-09-21] MEDS: Senna/Docusate Sodium 8.6/50 MG Tablet PO SCH ×2 (08:41→20:59)
[2018-09-21] MEDS: Ciprofloxacin 400 MG/200 ML 400 MG/200 ML PIGGYBACK IV.SIG SCH ×2 (12:08→21:00)
--- NOTE | 2018-09-21 12:36 | P.PNIM ---
Subjective Interval history: Patient continues to have sharp constant left sided pain Physical Exam Vital signs: Last Vital Signs Temp 98.2 F 09/21/18 12:00 Pulse 79 09/21/18 12:00 Resp 16 09/21/18 12:00 BP 143/80 H 09/21/18 12:00 Pulse Ox 93 L 09/21/18 12:00 Narrative: GENERAL: This is a well-nourished, well-developed patient, in no apparent distress. SKIN: papular rash bilateral flanks and bilateral upper legs CARDIOVASCULAR: Regular rate and rhythm RESPIRATORY: Clear to auscultation. Breath sounds equal bilaterally. GASTROINTESTINAL: Abdomen soft, left sided tender, nondistended. hypoactive bowel sounds MUSCULOSKELETAL: Extremities without clubbing, cyanosis, or edema. NEURO: Alert & Oriented x4 to person, place, time, situation. Moves all ext x4 Results Labs CBC & Chem 7: 09/19/18 04:21 09/19/18 04:21 Assessment and Plan Plan Ms. Nolasco is a 58 y/o female who was recently admitted to [facility] [place] from 09/11/18 - with left-sided abdominal/flank pain and was found to have 2 obstructing stones in the left kidney with the largest at the UPJ with a smaller 1 mm stone at the UPJ. There was a nonobstructing 1 mm stone in the right kidney. She had a cystoscopy and left retrograde pyelogram with left double-J stent insertion by Dr. Flores on 09/11/18. She still had some pain after the stent placement and because of this Dr. Flores ordered a repeat CT scan of the abdomen on 09/13/18 and it was reported that the stent was in the appropriate place. Pt was started on Flomax 0.4mg daily and Pyridium on the day of discharge. Pt has been using her Lortab 7.5/325mg for pain. Pt had urine culture did not grow out any bacteria so an antibiotic was not ordered at previous discharge. She presented back to the ED at [facility] [place]/16/18 with worsening left flank pain. Pt has been afebrile. Repeat CT Abd/pelvis on 09/16/18 which noted the Double-J catheter present on the left side with proximal loop in the renal pelvis and distal loop within the urinary bladder, interval calcified stones in the lower pole the left kidney stable from prior measuring up to 6 mm. On the right side, solitary 3 mm stone lower pole right kidney without evidence of hydronephrosis. Pt has had a difficult time with pain control and has required IV Dilaudid. Her labs are stable and pt has been afebrile. Patient was DC'd to [facility] [place] 09/18/18 to have Extracorporeal shockwave lithotripsy left renal calculi, cystoscopy and left ureteral stent removal with Dr. Spear. The patient went home from the procedure at 5 PM and several hours later developed left flank pain. The pain is located left flank, migrates to the left mid back, and is associated with nausea and vomiting. The patient denies any dysuria, frequency, urgency, or hematuria. Symptoms are moderate to severe and progressive. Left flank pain Perinephric hematoma Continue home tamsulosin and home Pyridium IV fluids Patient given IV Rocephin in emergency department DC Rocephin urine culture growing enterococcus faecalis sensitive to cipro, Cipro stated () Consult to urology, appreciate assistance Case discussed with Dr. Flores 09/20 - ok to DC once pain controlled Drug eruption rash -improving papular rash bilateral flanks and upper thighs consistent with drug reactions DC Dilaudid Benadryl as needed Percocet and IV Ofirmev for pain Concern for early ileus - resolved DC diet clear liquid diet KUB 09/20/18 No dilated loops of bowel seen. patient had multiple stools through the night resume diet reconsult PT, encourage OOB increase activity Hypertension Continue patient's home losartan 50 mg daily Cervical degenerative disc disease for which she sees pain management is on chronic pain medication. DVT prophylaxis with SCDs Progress Note: Quality VTE Deep Vein Thrombosis/Pulmonary Embolism Present on Admission: No
[2018-09-22] MEDS: Senna/Docusate Sodium 8.6/50 MG Tablet PO SCH (08:51)
[2018-09-22] MEDS: Ciprofloxacin 400 MG/200 ML 400 MG/200 ML PIGGYBACK IV.SIG SCH (09:02)
--- NOTE | 2018-09-22 10:24 | P.DS ---
DS: Providers Date of admission: 09/18/18 22:50 Primary care physician: UNKNOWN Consults: 09/18/18 22:53 Consult to Urology Routine Consulting Provider: Robby Flores Reason for Consultation: perinephric hematoma Notified:: Service Spoke with:: GELY Date Notified:: 09/18/18 Time Notified:: 23:37 Ordering Provider: ALICIA Brief History from admission: Ms. Nolasco is a 58 y/o female who was recently admitted to [facility] [place] from 09/11/18 - 09/13/18 with left-sided abdominal/flank pain and was found to have 2 obstructing stones in the left kidney with the largest at the UPJ with a smaller 1 mm stone at the UPJ. There was a nonobstructing 1 mm stone in the right kidney. She had a cystoscopy and left retrograde pyelogram with left double-J stent insertion by Dr. Flores on 09/11/18. She still had some pain after the stent placement and because of this Dr. Flores ordered a repeat CT scan of the abdomen on 09/13/18 and it was reported that the stent was in the appropriate place. Pt was started on Flomax 0.4mg daily and Pyridium on the day of discharge. Pt has been using her Lortab 7.5/325mg for pain. Pt had urine culture did not grow out any bacteria so an antibiotic was not ordered at previous discharge. She presented back to the ED at [facility] with worsening left flank pain. Pt has been afebrile. Repeat CT Abd/pelvis on 09/16/18 which noted the Double-J catheter present on the left side with proximal loop in the renal pelvis and distal loop within the urinary bladder, interval calcified stones in the lower pole the left kidney stable from prior measuring up to 6 mm. On the right side, solitary 3 mm stone lower pole right kidney without evidence of hydronephrosis. Pt has had a difficult time with pain control and has required IV Dilaudid. Her labs are stable and pt has been afebrile. Patient was DC'd to [facility] [place] 09/18/18 to have Extracorporeal shockwave lithotripsy left renal calculi, cystoscopy and left ureteral stent removal with . The patient went home from the procedure at 5 PM and several hours later developed left flank pain. The pain is located left flank, migrates to the left mid back, and is associated with nausea and vomiting. The patient denies any dysuria, frequency, urgency, or hematuria. Symptoms are moderate to severe and progressive. Past Medical Hx: Hypertension Cervical degenerative disc disease for which she sees pain management is on chronic pain medication. 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 Nolasco is a 58 y/o female who was recently admitted to [facility] [place] from 09/11/18 - with left-sided abdominal/flank pain and was found to have 2 obstructing stones in the left kidney with the largest at the UPJ with a smaller 1 mm stone at the UPJ. There was a nonobstructing 1 mm stone in the right kidney. She had a cystoscopy and left retrograde pyelogram with left double-J stent insertion by Dr. Flores on 09/11/18. She still had some pain after the stent placement and because of this Dr. Flores ordered a repeat CT scan of the abdomen on 09/13/18 and it was reported that the stent was in the appropriate place. Pt was started on Flomax 0.4mg daily and Pyridium on the day of discharge. Pt has been using her Lortab 7.5/325mg for pain. Pt had urine culture did not grow out any bacteria so an antibiotic was not ordered at previous discharge. She presented back to the ED at [facility] 09/16/18 with worsening left flank pain. Pt has been afebrile. Repeat CT Abd/pelvis on 09/16/18 which noted the Double-J catheter present on the left side with proximal loop in the renal pelvis and distal loop within the urinary bladder, interval calcified stones in the lower pole the left kidney stable from prior measuring up to 6 mm. On the right side, solitary 3 mm stone lower pole right kidney without evidence of hydronephrosis. Pt has had a difficult time with pain control and has required IV Dilaudid. Her labs are stable and pt has been afebrile. Patient was DC'd to [facility] [place] 09/18/18 to have Extracorporeal shockwave lithotripsy left renal calculi, cystoscopy and left ureteral stent removal with Dr. Spear. The patient went home from the procedure at 5 PM and several hours later developed left flank pain. The pain is located left flank, migrates to the left mid back, and is associated with nausea and vomiting. The patient denies any dysuria, frequency, urgency, or hematuria. Symptoms are moderate to severe and progressive. Left flank pain - improving Perinephric hematoma Continue home tamsulosin and home Pyridium IV fluids Patient given IV Rocephin in emergency department DC Rocephin urine culture growing enterococcus faecalis sensitive to cipro, Cipro stated () Consult to urology, appreciate assistance Case discussed with Dr. Flores 09/20 - ok to DC once pain controlled Drug eruption rash -improving papular rash bilateral flanks and upper thighs consistent with drug reactions DC Dilaudid Benadryl as needed Percocet and IV Ofirmev for pain Concern for early ileus - resolved DC diet clear liquid diet KUB 09/20/18 No dilated loops of bowel seen. patient had multiple stools through the night resume heart healthy diet reconsult PT, encourage OOB increase activity Hypertension Continue patient's home losartan 50 mg daily Cervical degenerative disc disease for which she sees pain management is on chronic pain medication. DVT prophylaxis with SCDs Patient no longer wants to stay in the hospital, refuses SNF asking for DC home today. Time Spent with Patient Total time spent providing and/or coordinating discharge services: Quality: VTE Deep Vein Thrombosis/Pulmonary Embolism Present on Admission: No Exam Narrative Exam Narrative: GENERAL: This is a well-nourished, well-developed patient, in no apparent distress. SKIN: papular rash bilateral flanks and bilateral upper legs - improving CARDIOVASCULAR: Regular rate and rhythm RESPIRATORY: Clear to auscultation. Breath sounds equal bilaterally. GASTROINTESTINAL: Abdomen soft, left sided tender, nondistended. hypoactive bowel sounds MUSCULOSKELETAL: Extremities without clubbing, cyanosis, or edema. NEURO: Alert & Oriented x4 to person, place, time, situation. Moves all ext x4 Results Impressions ITS Impressions Abdomen/Pelvis CT 09/18/18 21:56 CONCLUSION: 1. Interval development of a subcapsular and perinephric retroperitoneal hemorrhage on the left. 2. Interval removal of the left double-J stent without hydronephrosis. Multiple stone fragments are seen involving the left kidney. 3. Colonic diverticulosis. Abdomen X-Ray 09/20/18 06:00 CONCLUSION: No dilated loops of bowel seen. Discharge Plan Discharge Disposition Patient Disposition: Discharge Home Discharge Condition Condition: Stable Discharge Order Discharge Orders: Discharge Order (Routine); Ordered 09/22/18 Ordered By: Edith Ayers Discharge Details Anticipated Discharge Date: 09/22/18 Physicians Team ED Provider: Ihsan Mccabe Primary Care Provider: UNKNOWN, Attending Provider: Josr Koroma Other Providers: Robby Flores Rxs /Orders / Referrals /Forms Prescriptions: New clotrimazole-betamethasone [Lotrisone] 1-0.05 % Cream 1 applic topical BID Qty: 45 RF: 0 ciprofloxacin HCl [Cipro] 500 mg tablet 500 mg PO BID 7 Days Qty: 14 RF: 0 Continue losartan 50 mg Tablet 50 mg PO DAILY RF: 0 duloxetine 30 mg Capsule,Delayed Release(Dr/Ec) 90 mg PO DAILY RF: 0 hydrocodone-acetaminophen 7.5-325 mg Tablet 1 tab TID RF: 0 tamsulosin 0.4 mg Capsule 0.4 mg PO DAILY 14 Days Qty: 14 RF: 0 phenazopyridine 100 mg Tablet 100 mg PO Q8H PRN (Reason: Dysuria) 10 Days Qty: 30 RF: 0 oxycodone-acetaminophen 5-325 mg Tablet 1 tab PO Q4-6H PRN (Reason: Pain) Qty: 18 RF: 0 Referrals: Robby Flores, [UROLOGY] - See Instructions (follow up in 1-2 weeks) UNKNOWN, [Primary Care Provider] - See Instructions (Follow up with PCP in 1 week) Status ED Status: Left Department
== END 2018-09-22 13:46 | disposition home or self-care (01) | DRG 920 ==
LOC: NEPC 21:31 → NEDA 22:50 → N06 09-19 00:51
PROVIDERS: ADMIT Hospitalist; ATTEND Hospitalist
CPT/HCPCS: 50590; 74000; 74018; 74176; 80048; 80053; 81001; 83605; 83690; 83735; 85025; 86850; 86900; 86901; 87077; 87086; 87186; 90774; 90775; 90784; 96374; 96375; 99285; C8952; J0131; J0696; J0744; J1100; J1170; J1200; J1885; J2270; J2405; J2704; J3010; J7030; J7120